=== PATIENT | female | born 1955 | race Asian ===

== ENCOUNTER 2024-04-25 04:32 | Day surgery (SDC) | payer OTHER ==
[2024-04-23 17:12] VITALS: BMI 25.2
[2024-04-25] MEDS: ceFAZolin SODIUM 1 GM VIAL IVPB ONE
[2024-04-25] MEDS ORDERED: MIDAZOLAM HCL 2 MG/2 ML SINGLE DOSE VIAL ONE (12:13)
[2024-04-25] MEDS ORDERED: ROCURONIUM BROMIDE 50 MG/5 ML SYRINGE ONE (12:13)
[2024-04-25] MEDS ORDERED: PROPOFOL 20 ML ONE (12:13)
[2024-04-25] MEDS ORDERED: DEXAMETHASONE SOD PHOSPHATE 4 MG/1 ML VIAL ONE ×2 (12:14→12:50)
[2024-04-25] MEDS ORDERED: ONDANSETRON 4 MG/2 ML VIAL ONE (12:14)
[2024-04-25] MEDS ORDERED: SEVOFLURANE 250 ML BTL ONE (12:14)
[2024-04-25] MEDS ORDERED: SUGAMMADEX SODIUM 200 MG/2 ML VIAL ONE (12:14)
[2024-04-25] MEDS ORDERED: LIDOCAINE HCL/PF 2% SDV 5ML VIAL ONE (12:14)
[2024-04-25] MEDS: cefOXitin SODIUM 2 GM VIAL (RESTRICTED TO ID) IVPB ONE (12:50)
[2024-04-25] MEDS: BUPIVACAINE HCL/PF 0.5% (5MG/ML) 10 ML VIAL IJ ONE ×3 (12:54)
[2024-04-25] MEDS ORDERED: KETOROLAC TROMETHAMINE 30 MG/1 ML VIAL ONE (13:34)
[2024-04-25] MEDS ORDERED: oxyCODONE HCL 5 MG TABLET PO PRN (14:05)
[2024-04-25] MEDS ORDERED: ONDANSETRON 4 MG/2 ML VIAL IVPUSH PRN (14:05)
[2024-04-25] MEDS ORDERED: LACTATED RINGERS SOLUTION 1,000 ML IV SCH (14:15)
[2024-04-25] MEDS ORDERED: ACETAMINOPHEN INJECTION 100 ML IVPB ONE (14:35)
[2024-04-25] MEDS: ACETAMINOPHEN 1000 MG/100 ML BAG IVPB PRN (14:39)
[2024-04-25 16:02] VITALS: RESP 16
[2024-04-25 16:49] VITALS: BP 126/80; PULSE 90; TEMP 97.6
== END 2024-04-25 17:36 | disposition home or self-care (01) ==
LOC: JASU-SURG 04:32
PROVIDERS: ATTEND Surgery
PROC: 0FT44ZZ Resection of Gallbladder, Percutaneous Endoscopic Approach (ICD-10-PCS; principal; 2024-04-25 10:30)
DX: K80.10 Calculus of gallbladder with chronic cholecystitis without obstruction (principal)
CPT/HCPCS: 82962; 88304-TC; 94760; J0131